=== PATIENT | female | born 1930 | race Caucasian/White ===

== ENCOUNTER → 2016-12-09 | Outpatient (REF) ==
[~2016-12-09] MED LIST: B-121000 MCG PO; BACTROBAN 22GM22 GM NAS; BACTROBAN 22GM22 GM TP; BENADRYL 1%-0.11 CRE TP; BETAPACE 80MG80 MG PO; CALCIUM 600 + V1 TAB PO; CALCIUM CARBONA1 TA7 PO; CENA K20 MEQ/15 PO; CO Q-1030 MG PO; CRANBERRY400 MG PO; DEMADEX 20MG20 M1 PO; DOXYCYCLINE 10100 MG PO; DYAZIDE 25 MG-31 CAP PO; ENABLEX15 MG PO; FOSAMAX 70MG TA70 MG PO; INDERAL40 MG PO; LIPITOR 40MG TA40 MG PO; LORTAB 7.5/5001 TAB PO; MASON NATURAL1000 MG PO; MICROTHENE FN501 POW; MIRALAX PA17 GM/Dose PO; PRIL40 PO; SYNTHROID0.05 MG/TA PO; TEARS NATURALE15 M1 OP; UNABLE; VITAMIN C PUR1000 MG PO; VITAMIN E 400 U4001 PO
[2016-12-09 20:16] LABS: THYROID STIMULATING HORMONE 3.3 uIU/mL (0.465-4.680)
== END ==
LOC: ZLAB.WCH 16:41
PROVIDERS: Internal Medicine
DX: Z01.89 Encounter for other specified special examinations (principal)

== ENCOUNTER → 2016-12-19 | Outpatient (CLI) | payer MEDICARE, BC | LOC: WCC 08:29 | DX: L98.9 Disorder of the skin and subcutaneous tissue, unspecified (principal); N39.46 Mixed incontinence | CPT/HCPCS: G0463 ==

== ENCOUNTER 2017-03-22 15:15 | Outpatient (RCR) | payer MEDICARE, BC | END 2017-03-23 12:51 | disposition home or self-care (01) | LOC: WSPT 15:15 | DX: M17.0 Bilateral primary osteoarthritis of knee (principal); L89.152 Pressure ulcer of sacral region, stage 2 | CPT/HCPCS: G8978-GP; G8979-GP; G8980-GP ==

== ENCOUNTER → 2017-08-05 | Outpatient (REF) ==
[2017-08-05 12:40] LABS: THYROID STIMULATING HORMONE 2.89 uIU/mL (0.465-4.680)
== END ==
LOC: ZLAB.WCH 11:34
PROVIDERS: Internal Medicine
DX: Z01.89 Encounter for other specified special examinations (principal)